=== PATIENT | female | born 1970 | race Caucasian/White ===

== ENCOUNTER 2022-06-13 10:30 | Outpatient (CLI) | payer OTHER | END 2022-06-13 23:59 | disposition home or self-care (01) | LOC: MLB 10:30 → EDSTATUS 06-15 15:00 | PROVIDERS: ATTEND Internal Medicine Gastroenterology | DX: Z01.812 Encounter for preprocedural laboratory examination (principal); Z20.822 Contact with and (suspected) exposure to COVID-19 ==